=== PATIENT | male | born 1955 | race Hispanic/Latino ===

== ENCOUNTER → 2020-03-22 | Outpatient (CLI) | payer MEDICARE, OTHER ==
--- NOTE | 2020-03-22 10:57 | Diagnostic Imaging Report ---
EXAM: CT Chest WITHOUT intravenous contrast 03/22/2020 9:50 AM INDICATION: History of smoking, pulmonary nodule COMPARISON: None TECHNIQUE: Chest was scanned utilizing a multidetector helical scanner from the lung apex through the level of the adrenal glands without administration of IV contrast. Coronal and sagittal reformations were obtained. Low-dose protocol was performed. IV CONTRAST: None RADIATION DOSE: Total DLP: 224 mGy*cm. Dose modulation, iterative reconstruction, and/or weight based adjustment of the mA/kV was utilized to reduce the radiation dose to as low as reasonably achievable. COMPLICATIONS: None FINDINGS: LINES/ TUBES: None. LUNGS AND AIRWAYS: The central airways are patent. No focal consolidation or pulmonary edema. Minimal biapical scarring. Minimal upper lung predominant centrilobular emphysema. 4 mm left lower lobe calcified granuloma. No suspicious pulmonary nodules. PLEURA: The pleural spaces are clear. HEART AND MEDIASTINUM: The thyroid gland is normal. No mediastinal, hilar or axillary lymphadenopathy. The heart is normal in size.. There is no pericardial effusion. UPPER ABDOMEN: Right and left hepatic hypodensities compatible with cysts. No acute findings in the upper abdomen. BONES: No acute osseous injury. SOFT TISSUES: Unremarkable. IMPRESSION: Minimal upper lobe predominant centrilobular emphysema. No suspicious pulmonary nodules. Signed by: Martha Read MD on 03/22/2020 10:54 AM
== END ==
LOC: CT 09:36
PROVIDERS: ATTEND Family Medicine
DX: F17.210 Nicotine dependence, cigarettes, uncomplicated (principal)
CPT/HCPCS: 71250